=== PATIENT | male | born 1995 | race Caucasian/White ===

== ENCOUNTER 2021-08-25 09:24 | Emergency (ER) | payer BC ==
[2021-08-25] MEDS ORDERED: ZOFRAN4 MG PO (10:38)
[2021-08-25] MEDS ORDERED: CEPHALEXIN500 M1 PO (10:38)
[2021-08-25] MEDS ORDERED: BACTRIM DS TAB1 EACH PO (10:38)
[2021-08-25] MEDS ORDERED: IBUPROFEN600 MG PO (10:38)
== END 2021-08-25 11:00 | disposition home or self-care (01) ==
LOC: ER1 09:24
DX: L05.01 Pilonidal cyst with abscess (principal)
CPT/HCPCS: 10080; 87070; 87205; 99283